=== PATIENT | female | born 1950 | race Caucasian/White ===

== ENCOUNTER 2017-02-04 13:24 | Emergency (ER) | payer OTHER ==
[~2017-02-04] VITALS: Ht 157.5 cm; Wt 65.5 kg
[2017-02-04 14:12] VITALS: Ht 157.5 cm; Wt 65.5 kg
[2017-02-04] MEDS ORDERED: CLOT30CR24 TOP (15:42)
[2017-02-04] MEDS ORDERED: CEPH-443 PO (15:42)
--- NOTE | 2017-02-04 15:47 | ERD ---
ER Documentation Chief Complaint Date/Time DATE: 02/04/17 TIME: 15:43 Chief Complaint MedRefill for rash cream; was seen by primary last Friday HPI 66-year-old female complaining of ringworm and needs refill of medication. Patient was seen by her primary doctor and started on ketoconazole and Diflucan. Patient states rash is improved however ran out of medication and needs more. Patient's got rash from her cat ROS All systems reviewed and are negative except as per history of present illness. Medications Home Meds Active Scripts Clotrimazole* (Clotrimazole* AF) 1% - 30 Gm Cream.gm., 1 APPLIC TOP BID for 7 Days, #5 TUB Prov:SAHIL TREJO PA-C 02/04/17 Cephalexin* (Keflex*) 500 Mg Capsule, 500 MG PO QID for 7 Days, CAP Prov:SAHIL TREJO PA-C 02/04/17 Physical Exam Vitals Vital Signs Date Time Temp Pulse Resp B/P Pulse Ox O2 Delivery O2 Flow Rate FiO2 02/04/17 14:12 97.8 100 18 169/93 96 Physical Exam GENERAL: The patient is well-appearing, well-nourished, in no acute distress NECK: C-spine is soft and supple. There is no meningismus. There is no cervical lymphadenopathy. No JVD. No bruits. No goiter. CHEST: Clear to auscultation bilaterally. There are no rales, wheezes or rhonchi. HEART: Regular rate and rhythm. No murmurs, clicks, rubs or gallops. No S3 or S4.. SKIN: Multiple satellite lesions with erythematous halos. No purulence. No vesicles. Procedures/MDM MDM: Patient's rash appears to be ringworm. I will cover with antibiotics given there is erythema noted around the halo rash. There is concern for possible secondary bacterial infection. I have low suspicion for worsening fungal infection. Patient will be given more cream to continue using on rash. I recommended patient do not use hydrocortisone or vinegar as she has previously been using as those will exacerbate and irritate the rash. Patient was given strict ER precautions and recommended to follow-up with primary care within 1-2 days for close evaluation. Departure Diagnosis: Primary Impression: Ringworm Condition: Stable Patient Instructions: Ringworm, Skin Referrals: COMMUNITY CLINICS YOU HAVE RECEIVED A MEDICAL SCREENING EXAM AND THE RESULTS INDICATE THAT YOU DO NOT HAVE A CONDITION THAT REQUIRES URGENT TREATMENT IN THE EMERGENCY DEPARTMENT. FURTHER EVALUATION AND TREATMENT OF YOUR CONDITION CAN WAIT UNTIL YOU ARE SEEN IN YOUR DOCTORS OFFICE WITHIN THE NEXT 1-2 DAYS. IT IS YOUR RESPONSIBILITY TO MAKE AN APPOINTMENT FOR FOLOW-UP CARE. IF YOU HAVE A PRIMARY DOCTOR --you should call your primary doctor and schedule an appointment IF YOU DO NOT HAVE A PRIMARY DOCTOR YOU CAN CALL OUR PHYSICIAN REFERRAL HOTLINE AT IF YOU CAN NOT AFFORD TO SEE A PHYSICIAN YOU CAN CHOSE FROM THE FOLLOWING [facility] [address] [facility] [facility] [address] [facility] [facility] [address] [facility] [facility] [address] [facility]. [facility] [address] [facility]. [facility] [address] [place] Additional Instructions: FOLLOW UP WITH YOUR PRIMARY CARE PHYSICIAN TOMORROW.Return to this facility if you are not improving as expected. SAHIL TREJO PA-C Feb 04, 2017 15:47
== END 2017-02-04 16:15 | disposition home or self-care (01) ==
LOC: FTE 13:24
DX: B35.9 Dermatophytosis, unspecified (principal)
CPT/HCPCS: 99283